=== PATIENT | male | born 1955 | race Caucasian/White ===

== ENCOUNTER 2019-12-29 09:41 | Emergency (ER) | payer OTHER ==
[2019-12-29 10:20] VITALS: BMI 38.7
[2019-12-29] MEDS ORDERED: SODIUM CHLORIDE 0.9% 500 ML INFUS.BAG IV ONE (10:24)
[2019-12-29] MEDS ORDERED: ONDANSETRON 4 MG/2 ML VIAL IVPUSH ONE (10:24)
[2019-12-29] MEDS ORDERED: FAMOTIDINE 20 MG/50 ML IVPB 20 MG/50 ML MG IVPB ONE (10:24)
--- NOTE | 2019-12-29 10:25 | PDOC ---
History of Present Illness - General Chief Complaint: Lightheaded Stated Complaint: LIGHTHEADED Time Seen by Provider: 12/29/19 10:05 History Source: Patient Exam Limitations: No Limitations - History of Present Illness Initial Comments: 12/29/19 10:22 Carlo Alvarez is a 64M with PMH HTN presenting with vertigo and nausea. Patient presents with new onset vertigo with nausea for the last few days. [facility] to feel the world revolving around him, dizzy, no N/V at that time, no fall. Same problem occurred last night, unprovoked, no N/V, just dizzy. Today presents with worsening vertigo with nausea and vomiting. Denies abdominal pain, fever, chills , nausea, vomiting, diarrhea, chest pain, SOB, palpitations, syncope. Says the vertigo is much worse when sitting up or moving neck, finds it is difficult to walk without assistance due to feeling of unsteadiness. Tolerating PO. Had one episode of similar vertigo in October 2019, PMD did not get CT or labs, diagnosed as peripheral vertigo and sent home. No known allergies. No abdominal surgeries. Past History - Past Medical History Allergies/Adverse Reactions: Allergies Allergy/AdvReac Type Severity Reaction Status Date / Time No Known Allergies Allergy Verified 12/29/19 10:07 Home Medications: Ambulatory Orders Hydrochlorothiazide [Hctz -] 25 mg PO DAILY 12/29/19 Losartan Potassium 100 mg PO DAILY 12/29/19 Meclizine HCl [Antivert -] 25 mg PO TID PRN #21 tablet 12/29/19 COPD: No HTN: Yes - Surgical History Appendectomy: Yes - Psycho Social/Smoking Cessation Hx Smoking History: Former smoker Have you smoked in the past 12 months: No Information on smoking cessation initiated: No Hx Alcohol Use: No Drug/Substance Use Hx: No Review of Systems - Review of Systems Able to Perform ROS?: Yes Constitutional: No: Chills, Fever, Weakness HEENTM: No: Blurred Vision, Double Vision, Mouth Pain, Dental Problems, Difficulty Swallowing Respiratory: No: Cough, Shortness of Breath, Wheezing, Productive cough Cardiac (ROS): No: Chest Pain, Edema, Irregular Heart Rate, Lightheadedness, Palpitations, Syncope ABD/GI: No: Constipated, Diarrhea, Nausea, Poor Appetite, Poor Fluid Intake, Vomiting, Abdominal cramping : No: Burning, Dysuria, Discharge, Frequency, Flank Pain, Hematuria, Incontinence Musculoskeletal: No: Back Pain, Gout, Joint Pain, Joint Swelling, Muscle Pain, Muscle Weakness Neurological: Yes: Unsteady Gait, Dizziness. No: Headache, Numbness, Paresthesia, Seizure, Tingling, Tremors, Ataxia Endocrine: No: Symptoms Reported Hematologic/Lymphatic: No: Symptoms Reported All Other Systems: Reviewed and Negative *Physical Exam - Vital Signs Last Vital Signs Temp Pulse Resp BP Pulse Ox 97.3 F L 65 20 171/94 H 95 12/29/19 10:07 12/29/19 10:07 12/29/19 10:07 12/29/19 10:12/29/19 10:07 - Physical Exam General Appearance: Yes: Nourished, Appropriately Dressed, Mild Distress HEENT: positive: EOMI, TRINO, Normal ENT Inspection, Normal Voice, Symmetrical, Pharynx Normal, Hearing Grossly Normal. negative: Scleral Icterus (R), Scleral Icterus (L), Pharyngeal Erythema, Tonsillar Exudate, Tonsillar Erythema Neck: positive: Trachea midline, Normal Thyroid, Supple. negative: Tender, Rigid, Lymphadenopathy (R), Lymphadenopathy (L), Tender lateral, Tender midline Respiratory/Chest: positive: Lungs Clear, Normal Breath Sounds. negative: Chest Tender, Respiratory Distress, Accessory Muscle Use, Crackles, Rales, Rhonchi, Stridor, Wheezing, Hyperresonant Cardiovascular: positive: Regular Rhythm, Regular Rate. negative: Murmur Gastrointestinal/Abdominal: positive: Normal Bowel Sounds, Flat, Soft. negative : Tender, Organomegaly, Pulsatile Mass, Guarding, Rebound Musculoskeletal: positive: Normal Inspection. negative: CVA Tenderness, Decreased Range of Motion, Vertebral Tenderness Extremity: positive: Normal Capillary Refill, Normal Inspection, Normal Range of Motion, Pelvis Stable. 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 negative: Sensory Deficit ED Treatment Course - LABORATORY CBC & Chemistry Diagram: 12/29/19 10:19 12/29/19 10:19 - RADIOLOGY Radiograph Interpretation: 12/29/19 14:08 CT head: IMPRESSION: Moderate volume loss, ventricular dilatation and mild periventricular chronic microvascular ischemic disease changes. Questionable tiny chronic lacunar infarct in the left thalamus. No CT evidence of a mass lesion or acute intracranial pathology is identified. Correlate clinically to determine further evaluation and follow-up. Medical Decision Making - Medical Decision Making 12/29/19 12:41 Patient presents with 3 days of new onset vertigo without headache, now with N/ V and unsteady gait. Neuro exam shows no deficits, has nystagmus and dizziness worsens with position consistent with peripheral vertigo, HINTS not suggestive of central lesion. However, new onset vertigo still present at rest in ED, concern remains for posterior CVA. - CMP for eval lytes - CBC for eval infection - CP/ECG for eval cardiac disease as cause of dizziness - CT head non-con for eval mass/posterior CVA - 1L NS, Pepcid, Zofran, meclizine for symptom control 12/29/19 14:09 CT head shows possible chronic right lacunar infarct, no mass lesion or bleed. Patient re-evaluated, feeling much better, not as dizzy, stand up and walks with no issue. Stable to be discharged home with neurology f/u and meclizine. Discharge - Discharge Information Problems reviewed: Yes Clinical Impression/Diagnosis: Vertigo Condition: Stable - Follow up/Referral Referrals: Chandler Thakkar MD [Staff Physician] - Kvng Ramsey MD [Staff Physician] - - Patient Discharge Instructions Patient Printed Discharge Instructions: DI for Vertigo, How to Perform Namrata Maneuver Additional Instructions: Today you were evaluated for vertigo. Your blood labs and ECG do not show any evidence of heart disease or infection. Your CT scan does not show any stroke. Your dizziness is likely being caused by a problem in your inner ears. We have sent you home with medication to treat this, and a referral to see a neurologist. Please follow-up with a neurologist and your primary doctor in the next week. At home, stay near furniture and get up slowly to prevent falls. If you experience worsening vomiting, become totally unable to walk, have abdominal or chest pain, vision changes, become unable to speak, or have any other new or concerning symptoms, please return to the emergency room. - Post Discharge Activity
[2019-12-29] MEDS ORDERED: ONDANSETRON 4 MG/2 ML VIAL ONE (10:34)
[2019-12-29 10:41] LABS: BASO % 0.6 % (0-2.0); EOS % 11.8 % (0-4.5); HEMATOCRIT 44.5 % (35.4-49); HEMOGLOBIN 15.7 GM/dL (11.7-16.9); LYMPH % 37.4 % (8-40); MCH 35.1 pg (25.7-33.7); MCHC 35.3 g/dl (32.0-35.9); MEAN CELL VOLUME 99.4 fl (80-96); MEAN PLT VOLUME 9.7 fl (7.5-11.1); MONO % 5.4 % (3.8-10.2); NEUT % 44.8 % (42.8-82.8); PLATELET COUNT 175 K/MM3 (134-434); RBC 4.48 M/mm3 (4.00-5.60); RDW 13.4 % (11.9-15.9); WHITE BLOOD COUNT 8.6 K/mm3 (4.0-10.0)
--- NOTE | 2019-12-29 10:45 | PDOC ---
Attending Attestation - Resident Resident Name: Sebas Tang - ED Attending Attestation I have performed the following: I have examined & evaluated the patient, The case was reviewed & discussed with the resident, I agree w/resident's findings & plan, Exceptions are as noted - HPI HPI: 12/29/19 10:40 64 y M hx of HTN presents with complaint of vertigo. The patient reports being well on saturday, but had a brief episode of vertigo lsating several minutes that spontaneously resolved without associtaed sypmoms including headache, palpitations, vision changes, speech changes, focl numbness/tingling/weakness, neck pain. pt felt fine the rest of the day. Today when he woke up he felt persistent vertigo that is much worse when he is walking aound and moving. States he feel smuch better when he is at rest. He denies any additional syptoms. Phyicical Exam: GENERAL: The patient is awake, alert, and fully oriented, Nontoxic - in no acute distress. HEAD: Normocephalic, atraumatic. EYES: extraocular movements intact, sclera anicteric, conjunctiva clear. ENT: Normal voice, Moist mucous membranes. NECK: Normal range of motion, supple LUNGS: Breath sounds equal, clear to auscultation bilaterally. No wheezes, no rhonchi, no rales. HEART: Regular rate and rhythm, normal S1 and S2 without murmur, rub or gallop. ABDOMEN: Soft, nontender, No guarding, no rebound. No CVA tenderness EXTREMITIES: Normal range of motion, no edema. NEUROLOGICAL: No facial assymetry, Normal speech, PSYCH: Normal mood, normal affect. SKIN: Warm, Dry, normal turgor, NEURO: Mental status: The patient is oriented x3. Cranial nerves: Cranial nerves II through XII are intact Motor: The upper extremities are 5 over 5 in all muscle groups. The lower extremities are 5 over 5 in all muscle groups. Negative pronator drift Sensation: Sensation is intact to light touch throughout. romberg negative Cerebellar: [id number] is normal in both upper extremities. Heel-knee- valdes is normal in both lower extremities. rapid alternating movements are normal. Reflexes: 2+ and symmetric in the upper and lower extremities. Gait: deferred suspect peripheral vertigo no neuro findings, no cerebellar findings will obtain CT head, blood work to screen for anemia/metabolic derangment ekg to screen for arrythmia melania give antiemetic/antivert for sypmtomatic relief - Physicial Exam PE: 12/29/19 14:19 see above - Medical Decision Making 12/29/19 14:18 pts labs reivewed pt feeling improved mbulating normal neuro exam will dc with supportive care I discussed the physical exam findings, ancillary test results and final diagnoses with the patient. I answered all of the patient's questions. The patient was satisfied with the care received and felt comfortable with the discharge plan and treatment plan. The patient will call their primary care physician within 24 hours to arrange follow-up and will return to the Emergency Department with any new, persistent or worsening symptoms. Heart Score/ECG Review - ECG Impressions Comment:: 12/29/19 12:49 Twelve-lead EKG was performed and reviewed by me. There is normal sinus rhythm with a normal rate. rate of 65 q wave in inferior leads
[2019-12-29] MEDS ORDERED: MECLIZINE HCL 25 MG TABLET (FP) PO ONE (10:48)
[2019-12-29 11:06] LABS: INR 1.07 (0.83-1.09); PROTHROMBIN TIME (PATIENT) 12.6 SEC (9.7-13.0)
[2019-12-29 11:08] LABS: ACTIVATED PTT 31.2 SECONDS (25.2-36.5)
[2019-12-29 11:13] LABS: ALBUMIN 3.8 g/dl (3.4-5.0); BILIRUBIN,TOTAL 1.4 mg/dL (0.2-1); BLOOD UREA NITROGEN 17.4 mg/dL (7-18); CALCIUM 9.3 mg/dL (8.5-10.1); CREATININE 0.8 mg/dL (0.55-1.3); POTASSIUM 3.7 mmol/L (3.5-5.1); TOT PROT 7.7 g/dl (6.4-8.2)
[2019-12-29] MEDS ORDERED: MECLIZINE HCL 25 MG TABLET (FP) ONE (11:13)
--- NOTE | 2019-12-29 13:14 | EKG ---
Test Reason : Blood Pressure : / mmHG Vent. Rate : 065 BPM Atrial Rate : 065 BPM P-R Int : 206 ms QRS Dur : 106 ms QT Int : 426 ms P-R-T Axes : 028 011 018 degrees QTc Int : 443 ms NORMAL SINUS RHYTHM INFERIOR INFARCT (CITED ON OR BEFORE 04-AUG-2002) ABNORMAL ECG WHEN COMPARED WITH ECG OF 04-AUG-2002 22:57, NO SIGNIFICANT CHANGE WAS FOUND Confirmed by MD RICK, BARBARA ([id number]) on 12/29/2019 1:14:02 PM Referred By: Confirmed By:BARBARA CABRERA MD
[2019-12-29 13:50] VITALS: TEMP 97.2
[2019-12-29 15:04] VITALS: BP 141/83; PULSE 75
== END 2019-12-29 15:08 | disposition home or self-care (01) ==
LOC: JER 09:41
PROC: 3E033GC Introduction of Other Therapeutic Substance into Peripheral Vein, Percutaneous Approach (ICD-10-PCS; principal; 2019-12-29)
PROC: 3E033GC Introduction of Other Therapeutic Substance into Peripheral Vein, Percutaneous Approach (ICD-10-PCS; 2019-12-29)
DX: R42 Dizziness and giddiness (principal)
CPT/HCPCS: 36415; 70450-TC; 80053; 82550; 83690; 84484; 85025; 85610; 85730; 93005; 93010; 96365; 96375; 99285-25